=== PATIENT | female | born 1980 | race Hispanic/Latino ===

== ENCOUNTER → 2019-01-17 | Day surgery (SDC) | payer OTHER ==
[~2019-01-17] MED LIST: ACETAMINOPHEN/CODEINE 300MG - 30MG TAB ONE; BUPIVACAINE HCL 0.5% INJ 30 ML VIAL INJ ONE; CEFAZOLIN SOD 1 GM/NS 50ML 50 ML IV ONE; DEXAMETHASONE SOD PHOS INJ 4 MG/ML VIAL ONE; FENTANYL CITRATE/PF 100MCG/2 ML INJ ONE; KETOROLAC TROMETHAMINE 30 MG/ML VIAL ONE; LIDOCAINE HCL 2% LOCAL INJ 5 ML SDV VIAL INJ ONE; MIDAZOLAM HCL 2 MG/2 ML VIAL ONE; ONDANSETRON HCL INJ 2MG/ML 2ML 2 MG/ML VIAL ONE; PROPOFOL IV EMULSION 10 MG/ML 20 ML VIAL ONE; SEVOFLURANE INHAL SOLN 250 ML PEN BTL ONE; [UNRECOGNIZED DRUG - OTHER] PO
--- OUTSIDE RECORDS SUMMARY | 2019-01-17 05:36 | XMS REPORT ---
Author Author [facility] Address Unknown Phone Unavailable Care Team Providers Care Programmer Analyst Consultant Name Role Phone Unavailable Unavailable Problems This patient has no known problems. Allergies, Adverse Reactions, Alerts This patient has no known allergies or adverse reactions. Medications This patient has no known medications. Encounters Start Date/Time End Date/Time Encounter Type Admission Type Attending [facility] Care Facility Care Department Encounter ID 2018-07-14 10:30:18 Outpatient [facility] [id number] 2018-07-06 08:21:00 2018-07-06 08:21:00 Emergency [facility] [id number]
--- NOTE | 2019-01-17 08:40 | Operative Report ---
DATE OF PROCEDURE: 01/17/2019 SURGEON: Sonu Gore MD PRODUCTION GRAPHIC DESIGNER: Kwadwo Martinez, certified PA. PREOPERATIVE DIAGNOSIS: Right de Quervain tenosynovitis. POSTOPERATIVE DIAGNOSIS: Right de Quervain tenosynovitis. PROCEDURE: Release of right 1st dorsal compartment. INDICATIONS: The patient is a 38-year-old lady, who has clinic signs and symptoms consistent with severe de Quervain tenosynovitis. The findings and options have been discussed. She would like to proceed with surgical intervention. The risks and benefits have been explained. She states she understands and wishes to proceed. PROCEDURE IN DETAIL: The patient was brought to the operating room and placed under general anesthetic. Her right upper extremity was prepped and draped in a sterile manner. A preoperative time-out was performed. The extremity was exsanguinated and a proximal tourniquet was inflated to 250 mmHg. An incision was made over the radial styloid. Care was taken to avoid injury to the superficial branch of the radial nerve. The 1st dorsal compartment was identified. There was some cystic swelling associated. The proximal portion of the 1st dorsal compartment was released. It was evident that the abductor pollicis longus and extensor pollicis brevis tendons diverged into two separate compartments, these were both released. The fluid collection was primarily associated with the extensor pollicis brevis, this tendon was retracted. There was notable fraying of the tendon. There was no signs of any fraying in the abductor pollicis longus. Complete release was accomplished. The wound was irrigated and closed with interrupted nylon stitches. A sterile bandage and a thumb spica splint were applied. There was no blood loss and all needle and sponge counts were correct. Sonu Gore MD DR/IMELDA /[id number]
[2019-01-17 09:20] VITALS: BP 100/60
== END | disposition home or self-care (01) ==
LOC: OR 05:32
PROVIDERS: ATTEND Specialist
DX: M65.4 Radial styloid tenosynovitis [de Quervain] (principal); R01.1 Cardiac murmur, unspecified; Z68.33 Body mass index [BMI] 33.0-33.9, adult
CPT/HCPCS: 25000; 81025; J0690; J1100; J1885; J2001; J2250; J2405; J2704; J3010